=== PATIENT | male | born 1970 | race Two or more races ===

== ENCOUNTER → 2024-06-12 | Outpatient (CLI) | payer BC, SELFPAY ==
--- NOTE | 2024-06-12 14:24 | XR_ITS ---
Examination: Foot, right, 3 views Technique: AP, oblique, lateral views foot, 3 views Date and time of exam: June 12, 2024 1434 hours INDICATIONS: Right heel pain this week. FINDINGS: Mild narrowing first metatarsophalangeal joint No fracture 4 mm plantar 6 mm posterior bony calcaneal spurs IMPRESSION: 4 mm plantar 6 mm posterior bony calcaneal spurs
== END | disposition home or self-care (01) ==
PROVIDERS: PCP Nurse Practitioner Family; Referring Provider Nurse Practitioner Family; Visit Provider Nurse Practitioner Family
DX: M77.31 Calcaneal spur, right foot (principal)
CPT/HCPCS: 73630